=== PATIENT | male | born 1980 | race Caucasian/White ===

== ENCOUNTER 2023-12-23 13:17 | Emergency (ER) | payer OTHER, SELFPAY ==
[2023-12-23] VITALS (9 sets, daily range): BP systolic 124–154; BP diastolic 85–110; PULSE 74–83; RESP 12–19; TEMP 35.8–36.7; O2SAT 96–99; BMI 28.1
--- NOTE | 2023-12-23 13:37 | CT_ITS ---
INDICATION: headache EXAMINATION: CT BRAIN - CT Head or Brain W/O Contrast Injection TECHNIQUE: Multiple axial images were obtained of the head without intravenous contrast. The protocol utilizes one or more of the following dose reduction techniques: automated exposure control, adjustment of mA and/or kV according to patient size,and/or use of iterative reconstruction technique. IV Contrast dosage and agent: None. RADIATION DOSAGE (If Supplied By Facility): CTDIvol = ( 44.99 ) mGy, DLP = ( 829.85 ) mGycm COMPARISON: No relevant prior comparison study available FINDINGS: BRAIN PARENCHYMA: There is high attenuation fluid within the suprasellar cistern consistent with an acute subarachnoid hemorrhage with extension anterior to the brainstem. No evidence of acute infarct. No intracranial mass or mass effect. There is preservation of the khan/white matter interface. Posterior fossa structures are unremarkable. CSF SPACES: Appropriate for age. No hydrocephalus. Basal cisterns are patent. CALVARIUM, SKULL BASE, PARANASAL SINUSES AND MASTOID AIR CELLS: Clear. No discrete lytic or blastic abnormalities. ORBITS: Both globes, extraocular muscles, optic nerves and retrobulbar fat appear unremarkable. ASPECTS Score for Acute Strokes: 10 CT/Brain/Head without Contrast IMPRESSION: Acute subarachnoid hemorrhage. This was discussed with Dr. Jocelyne Starks at 2:27 PM December 23, 2023 N.B. : The above Results were Read Back by Noy Chaudhary MD to Jocelyne Salamanca MD, and understanding confirmed on 12/23/2023 14:27:30 (ET). Electronically Signed: Noy Chaudhary MD at 14:28 EDT ,
--- NOTE | 2023-12-23 13:38 | EDS_ITS ---
HPI History of Present Illness Chief Complaint: Headache Informant: patient Onset/Context/Timing Onset: Today Narrative Narrative: Patient presents secondary to headache. He was sitting at home this morning at rest when he got rather abrupt onset of severe pressure in the front of his head. That is now improving but now he has pressure in the back of his head. He does not get frequent headaches. He is not on any medications. He did not have any new foods or exposures. He has had no recent head injury. He was transported by EMS and they did give Zofran for nausea. PFSH PFSH Medical History no medical history no medical history Home Medications ?Medication ?Instructions ?Recorded ?Last Taken ?Type NK 12/23/23 Unknown History Allergy/AdvReac Type Severity Reaction Status Date / Time No Known Allergies Allergy Verified 12/23/23 13:21 Surgical History Hx of hand surgery Hx of hernia repair Social History Smoking Status: Never smoker ROS ROS ED Constitutional Constitutional ED: Denies chills or fever(s) Eyes Eyes: Denies change in vision or discharge from eye(s) ENT ENT ED: Denies discharge from eye(s), rhinorrhea or sore throat Cardiovascular Cardiovascular: Denies chest pain Respiratory/Chest Respiratory/Chest: Denies cough or dyspnea Gastrointestinal Gastrointestinal: Reports nausea; Denies abdominal pain or vomiting Musculoskeletal Musculoskeletal: Denies back pain, extremity pain or neck pain Integumentary Denies Abrasions or rash Neurologic Neurologic: Reports headache(s); Denies weakness Allergic/Immunologic Allergic/Immunologic ED: Denies lip swelling or urticaria EXAM Physical Exam Const Vital Signs: 12/23/23 13:18 12/23/23 14:00 12/23/23 14:10 Temperature 96.4 F L Temperature Source Temporal Pulse Rate 74 Respiratory Rate 16 Blood Pressure 147/97 H 149/100 H Blood Pressure Mean 113 115 Blood Pressure Position Blood Pressure Location Pulse Ox 98 97 Oxygen Delivery Method Room Air Room Air 12/23/23 14:15 12/23/23 14:30 12/23/23 14:30 Temperature Temperature Source Pulse Rate 79 75 76 Respiratory Rate 12 19 H 15 Blood Pressure 124/96 H 154/110 H 154/110 H Blood Pressure Mean 105 124 123 Blood Pressure Position Blood Pressure Location Pulse Ox 96 98 97 Oxygen Delivery Method Room Air Room Air 12/23/23 14:45 12/23/23 14:55 12/23/23 14:58 Temperature 98.1 F Temperature Source Pulse Rate 78 76 78 Respiratory Rate 14 15 15 Blood Pressure 141/102 H 149/95 H 149/95 H Blood Pressure Mean 115 113 113 Blood Pressure Position Semi-Fowlers Blood Pressure Location Left Arm Pulse Ox 98 99 97 Oxygen Delivery Method Room Air 12/23/23 15:00 12/23/23 15:05 Temperature Temperature Source Pulse Rate 76 83 Respiratory Rate 18 17 Blood Pressure 148/85 H 141/93 H Blood Pressure Mean 106 109 Blood Pressure Position Blood Pressure Location Pulse Ox 98 98 Oxygen Delivery Method Room Air Positive well nourished and well developed General Appearance ED: well developed HEENT Reports moist mucous membranes Eyes EOMs intact bilaterally Chest Wall inspection of chest normal and palpation of chest normal Resp normal respiratory effort and clear to auscultation bilaterally Cardio regular rate and regular rhythm GI non-tender Palpation: soft Extremity normal to inspection Neuro oriented x3 and no sensory deficits noted Motor Exam: strength 5/5 throughout Psych mental status grossly normal Skin no rashes or lesions noted MDM MDM MDM Narrative Medical decision making narrative: Patient was sent to CT for evaluation of potential bleed. Labwork obtained to evaluate for leukocytosis, anemia, and electrolyte derangement. History & Record Review Discussion w/independent historian: Patient and Family Lab Data Attestation: I reviewed the patient's lab results. Labs: Laboratory Results - last 24 hr 12/23/23 12:45 WBC 5.5 RBC 4.78 Hgb 15.1 Hct 45.4 MCV 95.0 H MCH 31.6 MCHC 33.3 RDW Std Deviation 43.8 RDW Coeff of Abhijit 12.4 Plt Count 264 MPV 9.3 Immature Gran % (Auto) 0.400 Neut % (Auto) 56.7 Lymph % (Auto) 32.7 Warren % (Auto) 9.0 Eos % (Auto) 0.7 Baso % (Auto) 0.5 Absolute Neuts (auto) 3.1 Absolute Lymphs (auto) 1.81 Nucleated RBC % 0 PT 13.8 INR 1.1 APTT 20.5 L Sodium 139 Potassium 3.5 Chloride 108 H Carbon Dioxide 27.0 Anion Gap 4 L BUN 15 Creatinine 1.04 Estim Creat Clear Calc 90.57 Est GFR (MDRD) Af Amer 100 Est GFR (MDRD) Non-Af 83 BUN/Creatinine Ratio 14.4 Glucose 126 H Calcium 8.8 Radiography Diagnostic Testing: Clinical Impression(s) from Imaging Studies Brain CT 12/23/23 13:37 IMPRESSION: Acute subarachnoid hemorrhage. This was discussed with Dr. Jocelyne Starks at 2:27 PM December 23, 2023 N.B. : The above Results were Read Back by Noy Chaudhary MD to Jocelyne Salamanca MD, and understanding confirmed on 12/23/2023 14:27:30 (ET). Electronically Signed: Noy Chaudhary MD at 14:28 EDT , ADDENDUM: 12/23/23 1435 IMPRESSION: Acute subarachnoid hemorrhage. This was discussed with Dr. Jocelyne Starks at 2:27 PM December 23, 2023 N.B. : The above Results were Read Back by Noy Chaudhary MD to Jocelyne Salamanca MD, and understanding confirmed on 12/23/2023 14:27:30 (ET). Electronically Signed: Noy Chaudhary MD at 14:28 EDT , Treatment and Re-Evaluation :: Patient centimeter in the CT. I reviewed the images and patient does have evidence of an acute subarachnoid hemorrhage. Patient's blood pressure was 149/100. He received 20 mg of IV labetalol. CBC reveals normal white count 5.5 with a hemoglobin of 15.1. Coags unremarkable. Chemistry studies are normal. I spoke with neurosurgery at [facility] patient has been accepted in transfer. We are arranging air transport at this time. Critical Care Time Critical Care Time: Yes Critical care time (excluding procedures): 30-74 minutes (30 minutes), Including time spent:, Discussing w/Patient &/or Family/Financial Institution Vice President, Discussing w/Consultants and Arranging Admission or Transfer Discharge Plan Triage Chief Complaint: Headache Other Complaint: Nausea/Vomiting ED Provider: Jocelyne Salamanca Dx/Rx/DC Orders Clinical Impression: Subarachnoid hemorrhage Prescriptions: No Action NK Primary Care Provider: Amandeep Arauz Referrals: NOT,DEFINED [Non-Staff] - Print Language: Estonian Disposition Disposition: Acute Care Hospital Discharge Location: [facility] [place] Discharge Date/Time: 12/23/23 15:14
[2023-12-23] MEDS: 0.9% Normal Saline (1000mL) 1,000 ML 150 ML IV (13:46)
[2023-12-23 13:48] LABS: Absolute Lymphocyte Count 1.81 X10^3/uL (0.83-4.51); Absolute Neutrophil Count 3.1 X10^3/uL (2.0-7.7); Basophil# 0.03 X10^3/uL; Basophil% 0.5 % (0-1); Eosinophil# 0.04 X10^3/uL; Eosinophils% 0.7 % (0-5); Hematocrit 45.4 % (40-54); Hemoglobin 15.1 g/dL (13.0-16.5); Lymphocyte # 1.81 X10^3/ul (0.83-4.51); Lymphocyte % 32.7 % (19-41); Mean Corp Hgb Conc 33.3 g/dL (32-36); Mean Corpuscular Hgb 31.6 pg (27.0-32.0); Mean Platelet Vol. 9.3 fl (6.2-12.0); NRBC Flagged by Analyzer 0 % (0-5); Neutrophil # 3.14 X10^3/uL (2.7-7.7); Neutrophil % 56.7 % (47-70); Platelet Count 264 K/mm3 (150-450); RBC Distribution Width CV 12.4 % (11.6-14.6); RBC Distribution Width SD 43.8 fl (35.1-43.9); Red Blood Count 4.78 M/mm3 (4.6-6.2); White Blood Count 5.5 K/mm3 (4.4-11.0)
[2023-12-23 14:02] LABS: Anion Gap 4 (5-15); BUN 15 mg/dL (7-18); BUN/Creat Ratio 14.4 RATIO (10-20); Calcium,Total 8.8 mg/dL (8.5-10.1); Chloride 108 mmol/L (98-107); Creatinine, Serum 1.04 mg/dL (0.70-1.30); EST Glomerular Filtration Rate 83 mL/min (>60); Est Glom Filt Rate - Afr Amer 100 mL/min (>60); Estimated Creatinine Clearance 90.57 ml/min; Glucose 126 mg/dL (74-106); Potassium 3.5 mmol/L (3.5-5.1); Sodium Level 139 mmol/L (136-145)
[2023-12-23] MEDS: Labetalol (Prefilled) 20 MG/4 ML IV ×2 (14:07→14:34)
--- NOTE | 2023-12-23 14:14 | NURSING ---
CALLED [facility] FOR TRANSFER
[2023-12-23 14:17] LABS: International Normalized Ratio 1.1; Prothrombin Time (Protime)PT. 13.8 SECONDS (11.7-14.9)
--- NOTE | 2023-12-23 14:17 | NURSING ---
FAXED FACESHEET TO [facility]
[2023-12-23 14:18] LABS: Partial Thromboplast Time 20.5 Seconds (24.1-36.2)
--- NOTE | 2023-12-23 14:27 | NURSING ---
CALLED [facility]. ETA IS 23 TO 25 MIN
[2023-12-23] MEDS: Acetaminophen 500 MG Tablet 1000 MG PO (14:34)
[2023-12-23] MEDS: Nicardipine HCl-0.9% Sod Chlor 20 MG/200 ML IV.SOLN 50 MG CONT INF (14:55)
== END 2023-12-23 15:14 | disposition short-term general hospital (02) ==
PROVIDERS: Emergency Provider Emergency Medicine; PCP Family Medicine; Visit Provider Emergency Medicine
DX: I60.9 Nontraumatic subarachnoid hemorrhage, unspecified (principal)
CPT/HCPCS: 70450; 80048; 85025; 85610; 85730; 96361; 96365; 96375; 99285; J7030